=== PATIENT | male | born 2000 | race Two or more races ===

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

== ENCOUNTER 2019-01-27 11:45 | Emergency (ER) | payer MEDICAID ==
[~2019-01-27] VITALS: Ht 175.3 cm; Wt 61.2 kg
--- NOTE | 2019-01-27 11:53 | NUR ---
ED Nurse Note: Pt came in from home due to productive coughing x 3 weeks with greenish sputum. No fever upon arrival. AOx4, VSS. Will cont to monitor.
--- NOTE | 2019-01-27 12:05 | Emergency Room Report ---
History of Present Illness General Chief Complaint: Upper Respiratory Illness Source: Patient, Medical Record Present Illness HPI 18-year-old male with no significant past medical history here complaining of 3 weeks of productive cough with green phlegm. denies New onset fever. She reports that he started having symptoms such as sore throat and congestion 3 weeks ago. Patient smokes weed on daily basis. Denies fever, chills, nausea, vomiting, abdominal pain chest pain, shortness of breath, palpitation and all other associated symptoms. Taken [id number] cough medication with minimal relief. Nuys wheezing Allergies: Coded Allergies: SULFA (SULFONAMIDE ANTIBIOTICS) (Verified Allergy, Intermediate, REDDNESS AND WELTS OF FACE, 11/04/13) Patient History Past Medical History: see triage record Past Surgical History: unable to obtain Social History: Reports: smoking - marijaua smoke Immunizations: UTD Reviewed Nursing Documentation: PMH: Agreed; PSxH: Agreed Nursing Documentation-PMH Hx Cardiac Problems: No - mononucleosis Review of Systems All Other Systems: negative except mentioned in HPI Physical Exam Vital Signs Date Time Temp Pulse Resp B/P (MAP) Pulse Ox O2 Delivery O2 Flow Rate FiO2 01/27/19 11:49 98.1 92 15 95 Room Air Sp02 EP Interpretation: reviewed, normal General Appearance: normal inspection, well appearing, no apparent distress, alert Head: normocephalic, atraumatic Eyes: bilateral eye normal inspection, bilateral eye PERRL ENT: hearing grossly normal, TMs + canals normal, moist mucus membranes, pharyngeal erythema Neck: normal inspection, full range of motion, supple Respiratory: normal inspection, chest non-tender, lungs clear, no rhonchi, no respiratory distress, no wheezing Cardiovascular #1: normal inspection, no edema, no murmur Gastrointestinal: normal inspection, soft Genitourinary: no CVA tenderness Musculoskeletal: normal inspection, back normal Neurologic: normal inspection, alert, oriented x3 Psychiatric: normal inspection, judgement/insight normal Skin: normal inspection, normal color, no rash Lymphatic: normal inspection, no adenopathy Medical Decision Making PA Attestation All my diagnosis and treatment plans were reviewed ad discussed with my supervising physician Dr. Ozuna Diagnostic Impression: Primary Impression: bronchitis ER Course 18-year-old male with no significant past medical history here complaining of 3 weeks of productive cough with green phlegm. denies New onset fever. She reports that he started having symptoms such as sore throat and congestion 3 weeks ago. Patient smokes weed on daily basis. Denies fever, chills, nausea, vomiting, abdominal pain chest pain, shortness of breath, palpitation and all other associated symptoms. Taken scrb-xrv-athamly cough medication with minimal relief. Nuys wheezing Ddx considered but are not limited to : bronchitis, pneumonia, URI, Asthma, COPD , pneumothorax, pleural effusion, pulmonary Edema Vital signs: are WNL, pt. is afebrile H&PE are most consistent with: bacterial bronchitis due to smoking status ORDERS: azithromycin, mayela gudino ED INTERVENTIONS: None required at this time. DISCHARGE: At this time pt. is stable for d/c to home. Will provide printed patient care instructions, and any necessary prescriptions. Care plan and follow up instructions have been discussed with the patient prior to discharge. Last Vital Signs Date Time Temp Pulse Resp B/P (MAP) Pulse Ox O2 Delivery O2 Flow Rate FiO2 01/27/19 11:55 92 15 Room Air 01/27/19 11:49 98.1 95 Disposition: HOME, SELF-CARE Condition: Stable Scripts Ibuprofen* (MOTRIN*) 600 Mg Tablet 600 MG ORAL Q8H PRN for For Pain, #20 TAB 0 Refills Prov: Carlos Singh 01/27/19 Benzonatate* (TESSALON PERLE*) 100 Mg Capsule 100 MG ORAL THREE TIMES A DAY, #20 PERLE Prov: Carlos Singh 01/27/19 Azithromycin* (ZITHROMAX*) 250 Mg Tablet 250 MG ORAL DAILY, #6 TAB 0 Refills Take two tables once daily for 1 day, then one tablet once daily for 4 days. Prov: Carlos Singh 01/27/19 Patient Instructions: Acute Bronchitis, [id number] Additional Instructions: follow up With a primary care provider if symptoms continue. Avoid smoking as it will exacerbate your cough. Carlos Singh January 27, 2019 12:05
[2019-01-27] MEDS ORDERED: ZITHROMAX250 MG ORAL (12:06)
[2019-01-27] MEDS ORDERED: TESSALON PERLE100 MG ORAL (12:06)
[2019-01-27] MEDS ORDERED: IBUPROFEN600 MG ORAL (12:10)
[2019-01-27 12:11] VITALS: BP_SYST 121; BP_DIAS 76; BP_DIAS 84
--- NOTE | 2019-01-27 12:11 | NUR ---
ER DISCHARGE NOTE: Patient is cleared to be discharged per ERMD, pt is aox4, on room air, with stable vital signs. pt was given dc and prescription instructions, pt was able to verbalize understanding, pt id band removed. pt is able to ambulate with steady gait. pt took all belongings.
== END 2019-01-27 12:11 | disposition home or self-care (01) ==
LOC: EMR 12:05
DX: J20.9 Acute bronchitis, unspecified (principal); F12.90 Cannabis use, unspecified, uncomplicated; Z88.2 Allergy status to sulfonamides
CPT/HCPCS: 99283